=== PATIENT | female | born 1945 | race Caucasian/White ===

== ENCOUNTER 2024-01-05 07:51 | Day surgery (SDC) | payer OTHER, SELFPAY ==
[2023-12-31 07:36] VITALS: BMI 23.6
--- NOTE | 2024-01-01 14:42 | P.CONAN_ITS ---
Documented by User: Jessie Warner NP 01/02/24 09:07 HPI - Anesthesia Eval Consult details Narrative: 78yo F for Right Cataract Extraction IOL Insertion No previous cataract on record [facility] Past Medical History Medical History (Updated 12/31/23 @ 07:35 by Monica Angel RN) Trochanteric bursitis, right hip COVID-19 Allergic rhinitis Pure hypercholesterolemia Osteoporosis Thyroid disease Generalized anxiety disorder Impaired fasting glucose HTN (hypertension) Palpitations Murmur Cataracts, both eyes Surgical History Surgical History (Updated 12/31/23 @ 07:35 by Monica Angel RN) No pertinent past surgical history Social History Social History Patient Tobacco Use Status: Former Tobacco user Quit Date: 11/02/1968 Tobacco use type: Cigarette Cigarette Packs Per Day: 0.25 Cigarettes Per Day: 5.0 Years Smoked: 10 Use of substances other than those prescribed or required for medical reasons: No Are you DNR?: No Advance Directives: No Advance Directives Information Provided: Yes Advance Directives on File: No Patient : No : No Meds Allergies Allergy/AdvReac Type Severity Reaction Status Date / Time acetaminophen [From Percocet] Allergy Hives Verified 12/31/23 07:31 irbesartan [From Avapro] Allergy Hypotension Verified 12/31/23 07:31 lisinopril Allergy Cough Verified 12/31/23 07:31 oxycodone [From Percocet] Allergy Hives Verified 12/31/23 07:31 pravastatin Allergy Muscle Pain Verified 12/31/23 07:31 Home Medications ?Medication ?Instructions ?Recorded ?Confirmed ?Last Taken ?Type amlodipine 5 mg tablet 5 mg PO DAILY 12/31/23 12/31/23 01/05/24 History atorvastatin 10 mg tablet 10 mg PO DAILY 12/31/23 12/31/23 Unknown History calcium carbonate 600 mg-vitamin 1 tab PO DAILY 12/31/23 12/31/23 Unknown History D3 10 mcg (400 unit) tablet levothyroxine 75 mcg tablet 75 mcg PO DAILY 12/31/23 12/31/23 01/05/24 History multivitamin 1 tab PO DAILY 12/31/23 12/31/23 Unknown History Exam Height,Weight and Vital Signs: Height 5 ft 2 in Weight 58.513 kg Assessment and Plan Assessment Anesthesia Assessment: Chart Reviewed Documented by User: Francisco Richmond MD 01/05/24 09:22 [facility] Past Medical History Medical History (Updated 12/31/23 @ 07:35 by Monica Angel RN) Trochanteric bursitis, right hip COVID-19 Allergic rhinitis Pure hypercholesterolemia Osteoporosis Thyroid disease Generalized anxiety disorder Impaired fasting glucose HTN (hypertension) Palpitations Murmur Cataracts, both eyes Family History Family history of problems with anesthesia: No Surgical History Surgical History (Updated 12/31/23 @ 07:35 by Monica Angel RN) No pertinent past surgical history History of Problems with Anesthesia: No Social History Social History Patient Tobacco Use Status: Former Tobacco user Quit Date: 11/02/1968 Tobacco use type: Cigarette Cigarette Packs Per Day: 0.25 Cigarettes Per Day: 5.0 Years Smoked: 10 Use of substances other than those prescribed or required for medical reasons: No Are you DNR?: No Advance Directives: No Advance Directives Information Provided: Yes Advance Directives on File: No Patient : No : No Meds Allergies Allergy/AdvReac Type Severity Reaction Status Date / Time acetaminophen [From Percocet] Allergy Hives Verified 12/31/23 07:31 irbesartan [From Avapro] Allergy Hypotension Verified 12/31/23 07:31 lisinopril Allergy Cough Verified 12/31/23 07:31 oxycodone [From Percocet] Allergy Hives Verified 12/31/23 07:31 pravastatin Allergy Muscle Pain Verified 12/31/23 07:31 Home Medications ?Medication ?Instructions ?Recorded ?Confirmed ?Last Taken ?Type amlodipine 5 mg tablet 5 mg PO DAILY 12/31/23 12/31/23 01/05/24 History atorvastatin 10 mg tablet 10 mg PO DAILY 12/31/23 12/31/23 Unknown History calcium carbonate 600 mg-vitamin 1 tab PO DAILY 12/31/23 12/31/23 Unknown History D3 10 mcg (400 unit) tablet levothyroxine 75 mcg tablet 75 mcg PO DAILY 12/31/23 12/31/23 01/05/24 History multivitamin 1 tab PO DAILY 12/31/23 12/31/23 Unknown History Exam Airway Mallampati Class: II TM Dist: >3cm Neck ROM: Full Loose/Missing/Broken Teeth: No Heart: rrr Lungs: cta Assessment and Plan Assessment Anesthesia Assessment: Anesthesia Plan Discussed Final Anesthetic Review Family History of Problems with Anesthesia: No History of Problems with Anesthesia: No NPO: Yes ASA Class: II Final Preanesthetic Review: No Changes in Pt Med Stat, Meds/Allgs Chart Reviewed, Consent Obtained/Reviewed and Anes Risks/Benef Reviewed Patient Risk: Low Procedure Risk: Low Anesthetic Plan Anesthetic Plan: MAC: Disposition: Standard PACU
[2024-01-05 08:31] VITALS: PULSE 82; RESP 18; TEMP 36.4; O2SAT 100
[2024-01-05 08:34] VITALS: BMI 23.0
[2024-01-05 09:21] VITALS: BP 151/76; PULSE 82; RESP 18; TEMP 36.4; O2SAT 100
[2024-01-05] MEDS: Phenylephrine HCL 2.5% Oph SoL 2 ML BOTTLE 1 DROP EYE-RIGHT ×3 (09:33→09:39)
[2024-01-05] MEDS: Tetracaine HCl/PF 0.5% Oph Sol 4 ML DROPS 1 DROP EYE-RIGHT (09:33)
[2024-01-05] MEDS: Lactated Ringers 500 ML 50 ML IV (09:33)
[2024-01-05] MEDS: Ketorolac Tromethamine 0.5% Op 10 ML DROPS 1 DROP EYE-RIGHT ×2 (09:34→09:39)
[2024-01-05] MEDS: Cyclopentolate 1 % Ophth Sol 2 ML DRPBTL 1 DROP EYE-RIGHT ×3 (09:34→09:40)
[2024-01-05] MEDS: Tropicamide 1 % Ophth Sol 3 ML BTL 1 DROP EYE-RIGHT ×3 (09:37→09:40)
--- NOTE | 2024-01-05 09:55 | MHC.SHP ---
Pre-Procedural Eval Section A - 24 Hr Update-Section A only Date of Service: 01/05/24 The patient is an INPATIENT: No Changes since office visit: No Cold of Flu in the past 2 weeks, No New Medical Problems, No Changes in Medication and No Patient answered all questions The patient has been examined within 24 hours of the surgical procedure. The History & Physical has been completed within 30 days and I have reviewed it.: Yes Section B - Complete if H&P > 30 days Chief Complaint: Age-related nuclear cataract, right eye Allergies: Allergies Allergy/AdvReac Type Severity Reaction Status Date / Time acetaminophen [From Percocet] Allergy Hives Verified 12/31/23 07:31 irbesartan [From Avapro] Allergy Hypotension Verified 12/31/23 07:31 lisinopril Allergy Cough Verified 12/31/23 07:31 oxycodone [From Percocet] Allergy Hives Verified 12/31/23 07:31 pravastatin Allergy Muscle Pain Verified 12/31/23 07:31 Plan Diagnosis/Plan: Unchanged I have reviewed the history and physical and performed a pertinent physical examination on my patient. No changes have occurred unless specified. Time Spent With Patient Time: Total time managing care of this patient today ____ minutes.
--- NOTE | 2024-01-05 09:56 | P.PCNO_ITS ---
Ophthalmology Procedure Procedure Date of Service: 01/05/24 Ophthalmology Viscoelastic: Healon Duet Dual Pack Pro Ophthalmology Lenses: IOL Acrysof MP - MA60AC (23.5) Procedure Notes: PREOPERATIVE DIAGNOSIS: Decreased visual acuity right eye secondary to cataract POSTOPERATIVE DIAGNOSIS: Same PROCEDURE: Right cataract extraction with intraocular lens insertion SURGEON: Albert Galloway M.D. ANESTHESIA: Topical/MAC ESTIMATED BLOOD LOSS: None COMPLICATIONS: None After obtaining informed consent, the patient was brought to the operating room suite and placed in the supine position. After adequate sedation per anesthesia, topical drops of Tetracaine were given to the right eye. The eye was then prepped and draped in the usual sterile fashion. The operating room microscope was then positioned over the operative eye and a lid speculum placed. A paracentesis was created. Viscoelastic was then instilled into the anterior chamber. A three plane incision was then created temporally, utilizing a 2.85 mm keratome. Capsulotomy forceps were then utilized to create a circular tear capsulotomy. Hydrodissection and hydrodelineation were carried out until adequate mobilization of the nucleus occurred. Phacoemulsification was then utilized to remove the dense central nu cleus followed by removal of the cortical material utilizing the automated aspiration irrigation unit. Viscoelastic was instilled into the posterior capsular bag followed by placement of a posterior chamber intraocular lens without difficulty. The residual Viscoelastic was then removed utilizing the automated IA machine. The wound was checked and found to be watertight. The patient tolerated the procedure well and the lid speculum was removed. Intracameral injection of Vigamox 0.1 mL followed by a subtenon injection of Kenalog-40 0.2 mL were administered. The patient will be seen in the a.m.
[2024-01-05 10:28] VITALS: BP 135/54; PULSE 57; RESP 12; TEMP 36.4; O2SAT 100
[2024-01-05 10:46] VITALS: BP 127/66; PULSE 69; RESP 20; TEMP 36.4; O2SAT 98
== END 2024-01-05 11:26 | disposition home or self-care (01) ==
PROVIDERS: PCP Internal Medicine; Visit Provider Ophthalmology
PROC: (CPT 66985; principal; 2024-01-05 09:10)
DX: H25.11 Age-related nuclear cataract, right eye (principal); H52.4 Presbyopia; Z83.511 Family history of glaucoma; H18.413 Arcus senilis, bilateral; I10 Essential (primary) hypertension; H43.393 Other vitreous opacities, bilateral; E07.9 Disorder of thyroid, unspecified; E78.00 Pure hypercholesterolemia, unspecified; Z79.899 Other long term (current) drug therapy; Z88.5 Allergy status to narcotic agent; Z87.891 Personal history of nicotine dependence
CPT/HCPCS: 66984; J2250; J3301; V2630

== ENCOUNTER 2024-01-19 10:54 | Day surgery (SDC) | payer OTHER, SELFPAY ==
[2023-12-31 07:43] VITALS: BMI 23.6
--- NOTE | 2024-01-16 09:43 | HO.ANESPROP2 ---
Documented by User: Jessie Warner NP 01/16/24 09:43 HPI - Anesthesia Eval Consult details Narrative: 78yo F for Left Cataract Extraction IOL Insertion PCP cleared Right eye 01/05/24: [facility] Past Medical History Medical History Trochanteric bursitis, right hip COVID-19 Allergic rhinitis Pure hypercholesterolemia Osteoporosis Thyroid disease Generalized anxiety disorder Impaired fasting glucose HTN (hypertension) Palpitations Murmur Cataracts, both eyes Family History Family history of problems with anesthesia: No Surgical History Surgical History (Updated 01/19/24 @ 12:01 by Erendira Mcmullen RN) Hx of cataract removal with insertion of prosthetic lens No pertinent past surgical history History of Problems with Anesthesia: No Social History Social History Patient Tobacco Use Status: Former Tobacco user Quit Date: 11/02/1968 Tobacco use type: Cigarette Cigarette Packs Per Day: 0.25 Cigarettes Per Day: 5.0 Years Smoked: 10 Use of substances other than those prescribed or required for medical reasons: No Are you DNR?: No Advance Directives: No Advance Directives Information Provided: Yes Advance Directives on File: No Patient : No : No Meds Allergies Allergy/AdvReac Type Severity Reaction Status Date / Time acetaminophen [From Percocet] Allergy Hives Verified 01/19/24 12:01 irbesartan [From Avapro] Allergy Hypotension Verified 01/19/24 12:01 lisinopril Allergy Cough Verified 01/19/24 12:01 oxycodone [From Percocet] Allergy Hives Verified 01/19/24 12:01 pravastatin Allergy Muscle Pain Verified 01/19/24 12:01 Home Medications ?Medication ?Instructions ?Recorded ?Confirmed ?Last Taken ?Type amlodipine 5 mg tablet 5 mg PO DAILY 12/31/23 01/19/24 01/19/24 History atorvastatin 10 mg tablet 10 mg PO DAILY 12/31/23 01/19/24 01/18/24 History calcium carbonate 600 mg-vitamin 1 tab PO DAILY 12/31/23 01/19/24 01/18/24 History D3 10 mcg (400 unit) tablet levothyroxine 75 mcg tablet 75 mcg PO DAILY 12/31/23 01/19/24 01/19/24 History multivitamin 1 tab PO DAILY 05/09/2401/19/24 01/18/24 History Exam Height,Weight and Vital Signs: Height 5 ft 2 in Weight 58.513 kg Assessment and Plan Assessment Anesthesia Assessment: Chart Reviewed Final Anesthetic Review Family History of Problems with Anesthesia: No History of Problems with Anesthesia: No Documented by User: Sharmila Paniagua MD 01/19/24 12:05 COUNT INCLUDES THE [facility] Past Medical History Medical History Trochanteric bursitis, right hip COVID-19 Allergic rhinitis Pure hypercholesterolemia Osteoporosis Thyroid disease Generalized anxiety disorder Impaired fasting glucose HTN (hypertension) Palpitations Murmur Cataracts, both eyes Surgical History Surgical History (Updated 01/19/24 @ 12:01 by Erendira Mcmullen RN) Hx of cataract removal with insertion of prosthetic lens No pertinent past surgical history Social History Social History Patient Tobacco Use Status: Former Tobacco user Quit Date: 11/02/1968 Tobacco use type: Cigarette Cigarette Packs Per Day: 0.25 Cigarettes Per Day: 5.0 Years Smoked: 10 Use of substances other than those prescribed or required for medical reasons: No Are you DNR?: No Advance Directives: No Advance Directives Information Provided: Yes Advance Directives on File: No Patient : No : No Meds Allergies Allergy/AdvReac Type Severity Reaction Status Date / Time acetaminophen [From Percocet] Allergy Hives Verified 01/19/24 12:01 irbesartan [From Avapro] Allergy Hypotension Verified 01/19/24 12:01 lisinopril Allergy Cough Verified 01/19/24 12:01 oxycodone [From Percocet] Allergy Hives Verified 01/19/24 12:01 pravastatin Allergy Muscle Pain Verified 01/19/24 12:01 Home Medications ?Medication ?Instructions ?Recorded ?Confirmed ?Last Taken ?Type amlodipine 5 mg tablet 5 mg PO DAILY 12/31/23 01/19/24 01/19/24 History atorvastatin 10 mg tablet 10 mg PO DAILY 12/31/23 01/19/24 01/18/24 History calcium carbonate 600 mg-vitamin 1 tab PO DAILY 12/31/23 01/19/24 01/18/24 History D3 10 mcg (400 unit) tablet levothyroxine 75 mcg tablet 75 mcg PO DAILY 12/31/23 01/19/24 01/19/24 History multivitamin 1 tab PO DAILY 12/31/23 01/19/24 01/18/24 History Exam Airway Mallampati Class: II TM Dist: >3cm Neck ROM: Full Heart: rrr Lungs: cta Assessment and Plan Assessment Anesthesia Assessment: Anesthesia Plan Discussed Final Anesthetic Review NPO: Yes ASA Class: II Final Preanesthetic Review: No Changes in Pt Med Stat, Meds/Allgs Chart Reviewed and Consent Obtained/Reviewed Patient Risk: Low Procedure Risk: Low Anesthetic Plan Anesthetic Plan: MAC: Disposition: Standard PACU
[2024-01-19] MEDS: Tetracaine HCl/PF 0.5% Oph Sol 4 ML DROPS 1 DROP EYE-LEFT (11:34)
[2024-01-19] MEDS: Cyclopentolate 1 % Ophth Sol 2 ML DRPBTL 1 DROP EYE-LEFT ×3 (11:35→11:51)
[2024-01-19] MEDS: Tropicamide 1 % Ophth Sol 3 ML BTL 1 DROP EYE-LEFT ×3 (11:37→11:53)
[2024-01-19] MEDS: Ketorolac Tromethamine 0.5% Op 10 ML DROPS 1 DROP EYE-LEFT ×3 (11:39→11:55)
[2024-01-19] MEDS: Phenylephrine HCL 2.5% Oph SoL 2 ML BOTTLE 1 DROP EYE-LEFT ×3 (11:41→11:57)
[2024-01-19] MEDS: Lactated Ringers 500 ML 50 ML IV (11:41)
[2024-01-19 12:00] VITALS: BP 155/76; PULSE 77; RESP 16; TEMP 36.3; O2SAT 98
--- NOTE | 2024-01-19 12:41 | MHC.SHP ---
Pre-Procedural Eval Section A - 24 Hr Update-Section A only Date of Service: 01/19/24 The patient is an INPATIENT: No Changes since office visit: No Cold of Flu in the past 2 weeks, No New Medical Problems, No Changes in Medication and No Patient answered all questions The patient has been examined within 24 hours of the surgical procedure. The History & Physical has been completed within 30 days and I have reviewed it.: Yes Section B - Complete if H&P > 30 days Chief Complaint: Age-related nuclear cataract, left eye Allergies: Allergies Allergy/AdvReac Type Severity Reaction Status Date / Time acetaminophen [From Percocet] Allergy Hives Verified 01/19/24 12:01 irbesartan [From Avapro] Allergy Hypotension Verified 01/19/24 12:01 lisinopril Allergy Cough Verified 01/19/24 12:01 oxycodone [From Percocet] Allergy Hives Verified 01/19/24 12:01 pravastatin Allergy Muscle Pain Verified 01/19/24 12:01 Plan Diagnosis/Plan: Unchanged I have reviewed the history and physical and performed a pertinent physical examination on my patient. No changes have occurred unless specified. Time Spent With Patient Time: Total time managing care of this patient today ____ minutes.
--- NOTE | 2024-01-19 12:42 | HO.PNOPHT ---
Ophthalmology Procedure Procedure Date of Service: 01/19/24 Ophthalmology Viscoelastic: Healon Duet Dual Pack Pro Ophthalmology Lenses: IOL Acrysof MP - MA60AC (23.5) Procedure Notes: PREOPERATIVE DIAGNOSIS: Decreased visual acuity left eye secondary to cataract POSTOPERATIVE DIAGNOSIS: Same PROCEDURE: Left cataract extraction with intraocular lens insertion SURGEON: Albert Galloway M.D. ANESTHESIA: Topical/MAC ESTIMATED BLOOD LOSS: None COMPLICATIONS: None After obtaining informed consent, the patient was brought to the operation room suite and placed in the supine position. After adequate sedation per anesthesia, topical drops of Tetracaine were given to the left eye. The eye was then prepped and draped in the usual sterile fashion. The operating room microscope was then positioned over the operative eye and a lid speculum placed. A paracentesis was created. Viscoelastic was then instilled into the anterior chamber. A three plane incision was then created temporally, utilizing a 2.85 mm keratome. Capsulotomy forceps were then utilized to create a circular tear capsulotomy. Hydrodissection and hydrodelineation were carried out until adequate mobilization of the nucleus occurred. Phacoemulsification was then utilized to remove the dense central nucleus followed by removal of the cortical material utilizing the automated aspiration irrigation unit. Viscoat elastic was instilled into the posterior capsular bag followed by placement of a posterior chamber intraocular lens without difficulty. The residual Viscoat elastic was then removed utilizing the automated IA machine. The wound was check and found to be watertight. The patient tolerated the procedure well and the lid speculum was removed. Intracameral injection of Vigamox 0.1 mL followed by a subtenon injection of Kenalog-40 0.2 mL were administered. The patient will be seen in the a.m.
[2024-01-19 13:09] VITALS: BP 130/64; PULSE 62; RESP 17; TEMP 36.2; O2SAT 100
== END 2024-01-19 13:12 | disposition home or self-care (01) ==
PROVIDERS: PCP Internal Medicine; Visit Provider Ophthalmology
PROC: (CPT 66985; principal; 2024-01-19 11:40)
DX: H25.12 Age-related nuclear cataract, left eye (principal); H52.4 Presbyopia; Z83.511 Family history of glaucoma; H18.413 Arcus senilis, bilateral; H43.393 Other vitreous opacities, bilateral; I10 Essential (primary) hypertension; R73.01 Impaired fasting glucose; E78.00 Pure hypercholesterolemia, unspecified; E03.9 Hypothyroidism, unspecified; J30.9 Allergic rhinitis, unspecified; F41.9 Anxiety disorder, unspecified; Z79.899 Other long term (current) drug therapy; Z88.5 Allergy status to narcotic agent; Z88.8 Allergy status to other drugs, medicaments and biological substances; Z87.891 Personal history of nicotine dependence
CPT/HCPCS: 66984; J2250; J3010; J3301; V2630